=== PATIENT | female | born 1955 | race Caucasian/White ===

== ENCOUNTER → 2017-03-15 | Outpatient (CLI) | payer BC ==
[~2017-03-15] MED LIST: BENADRYL; CLARITIN10 MG; DULOXETINE HCL30 MG PO; EFFEXOR XR; EFFEXOR XR150 MG PO; FISH OIL 1,2001 EACH PO; FLEXERIL; GLUCOSAMINE CHO1 CA3 PO; HYDROCHLOROTH12.5 MG PO; METHADONE; MOBIC15 MG PO; MULTI-DAY1 TAB PO; PENNSAID150 ML TP; PLAQUENIL200 MG PO; PRILOSEC40 MG PO; PRINIVIL20 M1 PO; VITAMIN B650 MG PO; WELCHOL625 MG PO; ZANAFLEX; ZOLOFT PO
--- NOTE | ~2017-03-15 | MY29 ---
[facility] A Service of [facility] RADIOLOGY TEXT RESULTS PATIENT: GENEVA MÉNDEZ LOCATION: [facility] : 51 UNIT #: [id number] AGE: [address]: Becky Springer MD SEX: F ORDER DR: [id number] [facility]. [place], [place] [address] [id number] O MR#: [id number] Acc #: [id number] NAME: GENEVA MÉNDEZ : 1955 SEX: F STUDY DATE/TIME: 03/15/2017 12:12 UNIT: [facility] ROOM: STUDY DESCRIPTION: MY LORENE SCREENING W/ CAD BILAT Attending Physician: Becky Springer M.D. Referring Physician: Becky Springer M.D. Ordering Physician: Becky Springer M.D. Primary Care Physician: Becky Springer M.D. MEDICAL IMAGING REPORT This report is preliminary unless electronic signature is present EXAM Bilateral digital screening mammogram with CAD, 03/15/2017 INDICATION 62-year-old female for routine screening. No reported problems and no personal history of breast cancer. Family history positive in the patient's mother and maternal aunt. History of biopsy on the left with benign results. TECHNIQUE CC and MLO views of the breast were obtained and reviewed with an FDA-approved CAD device. COMPARISON 07/19/2011, 12/24/2008, 01/15/2008 FINDINGS Breast parenchyma is composed of scattered fibroglandular densities. The pattern is unchanged. There is no new dominant nodule, mass or suspicious cluster of microcalcifications. Faint benign-appearing nodularity in both breasts not significantly changed for technical factors. Biopsy clip in the left breast adjacent to calcifications that have benign features. Benign intramammary node in the posterior lateral left breast unchanged dating back to 2008. IMPRESSION Benign screening mammogram. 1 year followup recommended. Patients over the age of 40 are entered into a reminder system with target due date for the next mammogram. A result letter will also be sent to the patient. BIRADS: 2 Benign Finding [facility] A Service of [facility] RADIOLOGY TEXT RESULTS PATIENT: GENEVA MÉNDEZ LOCATION: [facility] : 51 UNIT #: [id number] AGE: [address]: Becky Springer MD SEX: F ORDER DR: Dictated by... Gonzalez Lopez M.D. THIS IS AN ELECTRONICALLY VERIFIED REPORT Gonzalez Lopez M.D. at 03/15/2017 5:25 PM Kurtis TD: 03/15/2017 15:39 JOB #: [id number] MEDICAL IMAGING REPORT Page 1 of 1 COPY
--- NOTE | ~2017-03-15 | BD1 ---
[facility] A Service of [facility] RADIOLOGY TEXT RESULTS PATIENT: GENEVA MÉNDEZ LOCATION: [facility] : 51 UNIT #: [id number] AGE: [address]: Becky Springer MD SEX: F ORDER DR: [id number] [facility] [address] [place], [place] [address] [id number] O MR#: [id number] Acc #: [id number] NAME: GENEVA MÉNDEZ : 1955 SEX: F STUDY DATE/TIME: 03/15/2017 12:07 UNIT: [facility] ROOM: STUDY DESCRIPTION: BD Dexa Bone Dens 1+ Site Attending Physician: Becky Springer M.D. Referring Physician: Becky Springer M.D. Ordering Physician: Becky Springer M.D. Primary Care Physician: Becky Springer M.D. MEDICAL IMAGING REPORT This report is preliminary unless electronic signature is present EXAM DXA scan, 03/15/2017 HISTORY Status post menopause with no hormone replacement therapy. Osteopenia. Hysterectomy at age 25, with removal of both ovaries. Family history of breast carcinoma. Arthritis. Hypertension with blood pressure medication for 6 months. Stress fracture of right foot in last 10 years. Smoking history for 20 years. Family history of osteoporosis in mother. FINDINGS Bone mineral density in the lumbar spine from L1-L4 was 1.244 g/cm2, which is 1.8 standard deviations above the mean when compared to the young adult reference population, which is within the range of normal. This is 3.5 standard deviations above the mean when compared to the age-match population. Compared with 08/02/2011, there has been an increase in bone mineral density in the lumbar spine of 7.5%. Bone mineral density in the left femoral neck was 0.765 g/cm2, which is 0.8 standard deviations below the mean when compared to the young adult reference population, which is within the range of normal. This is 0.7 standard deviations above the mean when compared to the age-match population. Compared with 08/02/2011, there has been a decrease in bone mineral density in the left hip of 5.5%. IMPRESSION Bone mineral density in the lumbar spine and left hip within the range of normal. Compared with 08/02/2011, there has been an increase in bone mineral density in the lumbar spine and a decrease in bone mineral density in the left hip. Dictated by... Savage Aguilar M.D. [facility] A Service of [facility] RADIOLOGY TEXT RESULTS PATIENT: GENEVA MÉNDEZ LOCATION: [facility] : 51 UNIT #: [id number] AGE: [address]: Becky Springer MD SEX: F ORDER DR: THIS IS AN ELECTRONICALLY VERIFIED REPORT Savage Aguilar M.D. at 03/16/2017 7:55 AM PETER/juan r TD: 03/15/2017 14:35 JOB #: [id number] MEDICAL IMAGING REPORT Page 1 of 1 COPY
== END | disposition home or self-care (01) ==
LOC: CWCC 03-14 08:00
DX: Z12.31 Encounter for screening mammogram for malignant neoplasm of breast (principal); Z13.820 Encounter for screening for osteoporosis; M85.88 Other specified disorders of bone density and structure, other site; Z78.0 Asymptomatic menopausal state; Z80.3 Family history of malignant neoplasm of breast; Z98.890 Other specified postprocedural states
CPT/HCPCS: 77080; G0202